=== PATIENT | female | born 1950 | race Caucasian/White ===

== ENCOUNTER → 2017-01-30 | Outpatient (CLI) | payer MEDICARE, OTHER ==
[~2017-01-30] MED LIST: ARIMIDEX1 MG PO; BENZACLIN 5%-1%1 GEL TP; CALTRATE-600 W600 MG PO; CUTIVATE 60 ML60 ML TP; FEMARA; FEMRING0.1 MG/24; FINACEA15% TP; FLONASE NASAL S16 GM NS; FOLTX PO; NORCO 325 MG-7.1 TAB PO; OMEGA 31000 MG PO; ORACEA40MG; PREMPRO 0.45 MG1 TAB PO; PRILOSEC 20MG20 MG PO; PROBIOTIC FORMU1 CAP PO; PROMETHAZINE12.5 M5 PO; SYSTANE LUBRICAN5 ML; WELCHOL 625MG625 MG PO; XANAX .25M0.25 MG/TA PO
== END ==
LOC: MC.RAD 10:20
DX: Z12.31 Encounter for screening mammogram for malignant neoplasm of breast (principal); D24.2 Benign neoplasm of left breast; Z85.3 Personal history of malignant neoplasm of breast

== ENCOUNTER → 2018-02-01 | Outpatient (CLI) | payer MEDICARE, OTHER | LOC: MC.RAD 10:33 | DX: Z12.31 Encounter for screening mammogram for malignant neoplasm of breast (principal); Z85.3 Personal history of malignant neoplasm of breast; Z90.12 Acquired absence of left breast and nipple; Z92.3 Personal history of irradiation ==

== ENCOUNTER 2018-11-17 08:45 | Outpatient (RCR) | payer MEDICARE, OTHER | END 2019-02-09 | disposition home or self-care (01) | LOC: MKS.ESL.PT | DX: M47.816 Spondylosis without myelopathy or radiculopathy, lumbar region (principal); Z79.899 Other long term (current) drug therapy; Z87.891 Personal history of nicotine dependence ==

== ENCOUNTER → 2019-02-11 | Outpatient (CLI) | payer MEDICARE, OTHER | LOC: MC.RAD 07:30 | DX: Z12.31 Encounter for screening mammogram for malignant neoplasm of breast (principal); C50.212 Malignant neoplasm of upper-inner quadrant of left female breast; Z92.3 Personal history of irradiation; Z98.890 Other specified postprocedural states ==

== ENCOUNTER → 2020-02-13 | Outpatient (CLI) | payer MEDICARE, OTHER | LOC: MC.RAD 10:00 | DX: Z12.31 Encounter for screening mammogram for malignant neoplasm of breast (principal); Z85.3 Personal history of malignant neoplasm of breast; Z92.3 Personal history of irradiation ==

== ENCOUNTER 2020-03-18 11:14 | Emergency (ER) | payer MEDICARE, OTHER ==
[~2020-03-18] VITALS: Ht 154.9 cm; Wt 69.5 kg
[2020-03-18 11:19] VITALS: TEMP 98.1
[2020-03-18] MEDS ORDERED: PRILOSEC10 MG (11:29)
[2020-03-18] MEDS ORDERED: SINGULAIR 110 MG/TAB (11:30)
[2020-03-18 11:47] LABS: PROTHROMBIN TIME 11.4 SECONDS (9.7-12.8)
[2020-03-18 11:49] LABS: BASO % 0.3 % (0.0-2.0); EOS # 0.1 (0.0-0.7); EOS % 1.8 % (0-4.0); GRAN # 3.5 (1.4-6.5); GRAN % 48.5 % (42.2-75.2); HEMATOCRIT 41.4 % (37.0-47.0); HEMOGLOBIN 13.8 g/dl (12.5-16.0); LYMPH # 2.8 (1.2-3.4); LYMPH % 38.8 % (20.0-51.0); MEAN CELL VOLUME 88 fl (80.0-100.0); MEAN CORPUSCULAR HEMOGLOBIN 29 pg (27.0-31.0); MEAN CORPUSCULAR HGB CONC 33 g/dl (33.0-37.0); MEAN PLATELET VOLUME 11.8 fl (7.4-10.4); MONO # 0.7 (0.1-0.6); MONO % 10.2 % (1.7-9.3); PLATELET COUNT 221 K/mm3 (130-400); REDCELL DISTRIBUTION WIDTH-CV 14.6 % (11.5-14.5)
[2020-03-18 11:58] LABS: ALANINE AMINOTRANSFERASE 26 U/L (4-34); ALBUMIN 4.1 gm/dL (3.5-5.0); ALKALINE PHOSPHATASE 110 U/L (50-136); ANION GAP 5 mmol/L (7-16); AST,SGOT 38 U/L (15-37); BILIRUBIN,TOTAL 0.9 mg/dL (0.0-1.0); BLOOD UREA NITROGEN 15 mg/dL (7-17); CALCIUM 9.3 mg/dL (8.4-10.2); CARBON DIOXIDE 25 mmol/L (22-30); CHLORIDE 107 mmol/L (98-107); CREATININE, serum 0.73 (0.52-1.25); GLUCOSE 87 mg/dL (74-106); LIPASE 72 U/L (23-300); SODIUM 137 mmol/L (137-145); TOTAL PROTEIN 7.2 gm/dL (6.4-8.2)
[2020-03-18 12:12] LABS: TROPONIN-I < 0.012 ng/mL (0.000-0.035)
[2020-03-18] MEDS ORDERED: NITROSTAT0.4 MG/TAB SL (14:46)
[2020-03-18 14:49] VITALS: BP 140/72; PULSE 71
[2020-03-21] MEDS ORDERED: B-12 250 MCG PO (13:12)
[2020-03-21] MEDS ORDERED: MASON NATURAL2000 IU PO (13:12)
[2020-03-21] MEDS ORDERED: WELCHOL 625MG625 MG PO (13:13)
[2020-03-21] MEDS ORDERED: DORYX50 MG PO (13:13)
[2020-03-21] MEDS ORDERED: FLONASEALLERGY NS (13:15)
[2020-03-21] MEDS ORDERED: FISH OIL 1000MG1 CAP PO (13:15)
[2020-03-21] MEDS ORDERED: SINGULAIR 110 MG/TAB PO (13:16)
[2020-03-21] MEDS ORDERED: PRILOSEC 20MG20 MG PO (13:16)
[2020-03-21] MEDS ORDERED: CRESTOR5 MG PO (13:17)
== END 2020-03-18 15:00 | disposition home or self-care (01) ==
LOC: COL.ER 11:14
PROVIDERS: Emergency Medicine
DX: R07.9 Chest pain, unspecified (principal); K58.9 Irritable bowel syndrome, unspecified; Z85.3 Personal history of malignant neoplasm of breast; Z87.891 Personal history of nicotine dependence; Z79.51 Long term (current) use of inhaled steroids
CPT/HCPCS: J7030

== ENCOUNTER → 2020-03-22 | Outpatient (CLI) | payer MEDICARE, OTHER ==
--- NOTE | 2020-03-20 12:37 | NUR ---
LMOM WITH CALL BACK NUMBER.
[~2020-03-22] VITALS: Ht 154.9 cm; Wt 70.9 kg
[~2020-03-22] MED LIST changes: +B-12 250 MCG PO; +CRESTOR5 MG PO; +DORYX50 MG PO; +FISH OIL 1000MG1 CAP PO; +FLONASEALLERGY NS; +MASON NATURAL2000 IU PO; +NITROSTAT0.4 MG/TAB SL; +PRILOSEC10 MG; +SINGULAIR 110 MG/TAB; +SINGULAIR 110 MG/TAB PO
[2020-03-22 08:28] VITALS: BP 123/74; PULSE 69
[2020-03-22 09:39] VITALS: BP 125/64; PULSE 92
[2020-03-22 09:40] VITALS: BP 114/55; PULSE 84
[2020-03-22 09:41] VITALS: BP 106/55; PULSE 83
[2020-03-22 09:42] VITALS: BP 112/56; PULSE 79
== END ==
LOC: COL.CARD 07:51
DX: R07.9 Chest pain, unspecified (principal)
CPT/HCPCS: A9500; J2785

== ENCOUNTER → 2021-03-14 | Outpatient (CLI) | payer MEDICARE, OTHER | LOC: MC.RAD 13:00 | DX: Z12.31 Encounter for screening mammogram for malignant neoplasm of breast (principal); C50.212 Malignant neoplasm of upper-inner quadrant of left female breast ==

== ENCOUNTER → 2022-04-02 | Outpatient (CLI) | payer MEDICARE, OTHER | LOC: MC.RAD 11:25 | DX: Z12.31 Encounter for screening mammogram for malignant neoplasm of breast (principal) ==